=== PATIENT | female | born 1985 | race Caucasian/White ===

== ENCOUNTER 2020-03-13 18:11 | Emergency (ER) | payer OTHER ==
[~2020-03-13] VITALS: Ht 160 cm; Wt 64.9 kg
[2020-03-13 18:21] VITALS: Ht 160 cm; Wt 64.9 kg
[2020-03-13 20:16] LABS: BASOPHIL % 1.4 % (0-2); PLATELET COUNT 352 x10^3mcL (130-400)
[2020-03-13 20:20] LABS: RED CELL DISTRIBUTION WIDTH 22.3 % (11.5-14.5)
[2020-03-13 20:29] LABS: rbc morphology (normal/abnorm) ABNORMAL (NORMAL)
[2020-03-13 20:30] LABS: schistocyte (helmet cell) 1+
[2020-03-13 20:38] LABS: CALCIUM 8.5 mg/dL (8.5-10.1); CARBON DIOXIDE 28.2 mmol/L (21-32); CHLORIDE SERUM 103 mmol/L (98-107); CREATININE SERUM 0.6 mg/dL (0.6-1.0); GFR1 > 60 mL/min; GLUCOSE SERUM 98 mg/dL (74-106); POTASSIUM SERUM 3.8 mmol/L (3.5-5.1); SODIUM SERUM 137 mmol/L (136-145)
[2020-03-13 20:42] LABS: ALKALINE PHOSPHATASE 65 U/L (46-116); ALT/SGPT 19 U/L (14-59); AST/SGOT 15 U/L (15-37); BILIRUBIN TOTAL 0.3 mg/dL (0.20-1.00); LIPASE 97 IU/L (73-393)
[2020-03-13 20:43] LABS: ALBUMIN 3.1 g/dL (3.4-5.0); TOTAL PROTEIN, SERUM 6.1 g/dL (6.4-8.2)
[2020-03-13 22:11] VITALS: BP 106/65
== END 2020-03-13 22:11 | disposition home or self-care (01) ==
LOC: ED 18:11
PROVIDERS: Emergency Medicine
DX: R42 Dizziness and giddiness (principal); D64.9 Anemia, unspecified; R53.1 Weakness; Z91.018 Allergy to other foods
CPT/HCPCS: J2405; J7030